=== PATIENT | female | born 1985 | race Caucasian/White ===

== ENCOUNTER 2022-07-30 13:41 | Day surgery (SDC) | payer SELFPAY ==
[2022-07-30] VITALS (7 sets, daily range): BP systolic 115–130; BP diastolic 56–77; PULSE 57–80; TEMP 98–98.9
[~2022-07-30] VITALS: Ht 160 cm; Wt 92.3 kg
[2022-07-30] MEDS ORDERED: GLEEVEC400 MG PO (16:02)
[2022-07-30] MEDS ORDERED: FLOMAX 0.40.4 MG/CAP PO (17:07)
[2022-07-30] MEDS ORDERED: PERCOCET 325 MG1 TA2 PO (17:07)
--- NOTE | 2022-07-30 18:00 | NUR ---
Arrived to room 329 from PACU. Oriented to room and policy. Post op vitals initiated and stable. Denies nausea/shortness of breath/pain. Voided x1-unmeasured. Noted to be light pink in color. Assessment complete. Denies current needs. Call light in reach. Will monitor.
--- NOTE | 2022-07-30 19:09 | NUR ---
PT UP TO BR PER SELF. VOIDED FLUSHED. IVF'S DC'D. VSS. NO PAIN. WAITING FOR EVENING MEAL.
--- NOTE | 2022-07-30 19:55 | NUR ---
PT EATING MEAL. NO NAUSEA OR PAIN. VSS. IV DC'D TO LT HAND.
--- NOTE | 2022-07-30 20:27 | NUR ---
PT UNDERSTNADS DISCHARGE INSTRUCTIONS. FEELS READY TO DISCHARGE. VOIDING W/O DIFFICULTY. NO PAIN OR NAUSEA. IV DC'D. DISCHARGED TO MOTHER. EXITED FROM ER DOORS.
== END 2022-07-30 20:20 | disposition home or self-care (01) ==
LOC: SDCO 13:41 → SURG 17:41 → SDCO 20:20
PROVIDERS: Urology
DX: N20.1 Calculus of ureter (principal)
CPT/HCPCS: OP; C1769; C2617; J0690; J1100; J2405; J2704; J3010; J7120